=== PATIENT | male | born 1990 | race Caucasian/White ===

== ENCOUNTER 2018-09-16 11:00 | Emergency (ER) | payer SELFPAY ==
[2018-09-16] MEDS ORDERED: LIDOCAINE 1% MPF 2 ML AMPULE ONE (12:18)
--- NOTE | 2018-09-16 12:51 | ER ---
Nurse's Notes [facility] Name: Benjamin Moser Age: 27 yrs Sex: Male : 1990 Arrival Date: 09/16/2018 Time: 11:01 Bed 26 Private MD: None, None Diagnosis: Cutaneous abscess of groin;Cutaneous abscess of left axilla;Cutaneous abscess of left lower limb;Cutaneous abscess of right lower limb Presentation: 09/16 11:30 Presenting complaint: Patient states: "I have this abscess under my armpit, and the aj1 next thing I knew I got 3 on my leg, and one is on my pelvis right where my belt would be and it really hurts" Reports fatigue, fever. Transition of care: patient was not received from another setting of care. Onset of symptoms was September 10, 2018. Risk Assessment: Do you want to hurt yourself or someone else? Patient reports no desire to harm self or others. Initial Sepsis Screen: Does the patient meet any 2 criteria? No. Patient's initial sepsis screen is negative. Does the patient have a suspected source of infection? Yes: Skin breakdown/wound. Care prior to arrival: None. 11:30 Method Of Arrival: Ambulatory aj1 11:30 Acuity: RHONDA 4 aj1 Triage Assessment: 11:33 General: Appears in no apparent distress. comfortable, Behavior is calm, cooperative, aj1 appropriate for age. Pain: Pain currently is 6 out of 10 on a pain scale. Neuro: Level of Consciousness is awake, alert, obeys commands. Cardiovascular: Patient's skin is warm and dry. Respiratory: Airway is patent Respiratory effort is even, unlabored, Respiratory pattern is regular, symmetrical. Historical: - Allergies: 11:33 Bactrim; aj1 - Home Meds: 11:33 None [Active]; aj1 - PMHx: 11:33 None; aj1 - PSHx: 11:33 None; aj1 - Immunization history:: Flu vaccine is not up to date. - Social history:: Smoking status: Patient uses tobacco products, smokes one pack cigarettes per day. - Ebola Screening: : Patient denies travel to an Ebola-affected area in the 21 days before illness onset. Screenin:38 Abuse screen: Denies threats or abuse. Nutritional screening: No deficits noted. tw2 Tuberculosis screening: No symptoms or risk factors identified. Fall Risk None identified. Assessment: 11:30 General: Appears in no apparent distress. Behavior is calm, cooperative, appropriate tw2 for age. Pain: Complains of pain in groin and pelvis. Neuro: Level of Consciousness is awake, alert, obeys commands, Oriented to person, place, time, situation. Cardiovascular: Denies chest pain, shortness of breath, Patient's skin is warm and dry. Respiratory: Airway is patent Respiratory effort is even, unlabored, Respiratory pattern is regular, symmetrical. GI: No signs and/or symptoms were reported involving the gastrointestinal system. : No signs and/or symptoms were reported regarding the genitourinary system. Derm: Abscess located on groin and left inner thigh and left axilla. Musculoskeletal: Range of motion: intact in all extremities. 13:00 Reassessment: Patient appears in no apparent distress at this time. No changes from tw2 previously documented assessment. Patient and/or family updated on plan of care and expected duration. Pain level reassessed. Patient is alert, oriented x 3, equal unlabored respirations, skin warm/dry/pink. Vital Signs: 11:33 BP 128 / 85; Pulse 83; Resp 18; Temp 97.8; Pulse Ox 100% on R/A; Weight 88.45 kg (R); aj1 Height 5 ft. 8 in. (172.72 cm); Pain 6/10; 12:58 BP 119 / 81; Pulse 81; Resp 17; Pulse Ox 100% on R/A; tw2 11:33 Body Mass Index 29.65 (88.45 kg, 172.72 cm) aj1 ED Course: 11:01 Patient arrived in ED. sb2 11:01 None, None is Private Physician. sb2 11:32 Triage completed. aj1 11:33 Arm band placed on Patient placed in an exam room. aj1 11:35 Angie Frey, BOLIVAR is Primary Nurse. tw2 11:35 Emily Jacobs FNP-C is PHCP. kb 11:35 Kurt Feng MD is Attending Physician. kb 11:37 Placed in gown. Bed in low position. Pulse ox on. NIBP on. tw2 12:55 Wound culture swab sent to lab. Wound care:. jp3 12:55 Wound Culture Sent. jp3 13:02 Assist provider with I \\T\\ D: of an abscess on suprapubic area only Set up I\\T\\D tray. tw 2 Performed by Emily WHITEHEAD Patient tolerated well. Patient did not have IV access during this emergency room visit. Administered Medications: 12:45 Drug: Lidocaine (1 %) 1 ml {Note: by FNP. Tracie} Volume: 5 ml; Route: Infiltration; tw2 12:57 Drug: Clindamycin 300 mg Route: PO; tw2 13:03 Follow up: Response: No adverse reaction tw2 Outcome: 12:51 Discharge ordered by . junior 13:03 Discharged to home ambulatory. tw2 13:03 Condition: stable 13:03 Discharge instructions given to patient, Instructed on discharge instructions, follow up and referral plans. medication usage, wound care, Demonstrated understanding of instructions, follow-up care, medications, wound care, Prescriptions given X 1. 13:04 Patient left the ED. tw2 Signatures: Emily Jacobs FNP-C FNP-Mariely Marie RN RN aj1 Angie Frey RN RN tw2 Ya Mcintosh sb2 Tyson Paloom jp3
--- NOTE | 2018-09-16 12:51 | EDPHYS ---
Physician Documentation [facility] Name: Benjamin Moser Age: 27 yrs Sex: Male : 1990 Arrival Date: 09/16/2018 Time: 11:01 Bed 26 Private MD: None, None ED Physician Kurt Feng HPI: 09/16 11:56 This 27 yrs old Male presents to ER via Ambulatory with complaints of Abscess.kb 11:56 The patient presents with an abscess of the left femoral area and right inner thigh and kb left inner thigh and left axilla and left gluteal fold. Description: erythematous, swollen. Onset: The symptoms/episode began/occurred 1 week(s) ago. Possible cause(s): unknown. Associated signs and symptoms: Pertinent positives: erythema, swelling, Pertinent negatives: discharge, drainage, foreign body sensation, fever, headache, nausea, shortness of breath, vomiting. Modifying factors: the symptoms are alleviated by nothing, the symptoms are aggravated by pressure, touching. Severity of symptoms: At their worst the symptoms were mild, moderate, in the emergency department the symptoms are unchanged. The patient has not experienced similar symptoms in the past. The patient has not recently seen a physician. Historical: - Allergies: 11:33 Bactrim; aj1 - Home Meds: 11:33 None [Active]; aj1 - PMHx: 11:33 None; aj1 - PSHx: 11:33 None; aj1 - Immunization history:: Flu vaccine is not up to date. - Social history:: Smoking status: Patient uses tobacco products, smokes one pack cigarettes per day. - Ebola Screening: : Patient denies travel to an Ebola-affected area in the 21 days before illness onset. ROS: 11:55 Constitutional: Negative for fever, chills, and weight loss, Cardiovascular: Negative kb for chest pain, palpitations, and edema, Respiratory: Negative for shortness of breath, cough, wheezing, and pleuritic chest pain, Abdomen/GI: Negative for abdominal pain, nausea, vomiting, diarrhea, and constipation, MS/Extremity: Negative for injury and deformity, Neuro: Negative for headache, weakness, numbness, tingling, and seizure. 11:55 Skin: Positive for abscess, of the left femoral area and right inner thigh and left inner thigh and left axilla and left gluteal fold. Exam: 11:54 Constitutional: This is a well developed, well nourished patient who is awake, alert, kb and in no acute distress. Head/Face: Normocephalic, atraumatic. Chest/axilla: Normal chest wall appearance and motion. Nontender with no deformity. No lesions are appreciated. Cardiovascular: Regular rate and rhythm with a normal S1 and S2. No gallops, murmurs, or rubs. Normal PMI, no JVD. No pulse deficits. Respiratory: Lungs have equal breath sounds bilaterally, clear to auscultation and percussion. No rales, rhonchi or wheezes noted. No increased work of breathing, no retractions or nasal flaring. Abdomen/GI: Soft, non-tender, with normal bowel sounds. No distension or tympany. No guarding or rebound. No evidence of tenderness throughout. MS/ Extremity: Pulses equal, no cyanosis. Neurovascular intact. Full, normal range of motion. Neuro: Awake and alert, GCS 15, oriented to person, place, time, and situation. Cranial nerves II-XII grossly intact. Motor strength 5/5 in all extremities. Sensory grossly intact. Cerebellar exam normal. Normal gait. 11:54 Skin: abscess, that is small, of the left gluteal fold, left femoral area, left axilla, right inner thigh and left inner thigh, with fluctuance, that is mild. Vital Signs: 11:33 BP 128 / 85; Pulse 83; Resp 18; Temp 97.8; Pulse Ox 100% on R/A; Weight 88.45 kg (R); aj1 Height 5 ft. 8 in. (172.72 cm); Pain 6/10; 12:58 BP 119 / 81; Pulse 81; Resp 17; Pulse Ox 100% on R/A; tw2 11:33 Body Mass Index 29.65 (88.45 kg, 172.72 cm) aj1 Procedures: 12:49 I \\T\\ D: Incision and drainage was performed for an abscess of the groin Prepped with Betadine, Anesthetized with 1 ml's 1% Lidocaine. Incised with #11 blade. Drained moderate amount purulent fluid. Packed with iodoform gauze, Dressing: sterile 4x4 gauze, the patient tolerated the procedure well. MDM: 11:35 Patient medically screened. kb 11:54 Data reviewed: vital signs, nurses notes. Data interpreted: Pulse oximetry: on room air kb is 100 %. Interpretation: normal. 11:57 ED course: Pt educated that I\\T\\D should be performed on each of the abscesses. Pt does kb not want them all opened. States "I'm just worried about the one on my groin because it hurts, but I don't want the rest of them cut. I will just take the antibiotics.". 12:49 Counseling: I had a detailed discussion with the patient and/or guardian regarding: the kb historical points, exam findings, and any diagnostic results supporting the discharge/admit diagnosis, lab results, the need for outpatient follow up, a family practitioner, a general surgeon, to return to the emergency department if symptoms worsen or persist or if there are any questions or concerns that arise at home. 09/16 12:10 Order name: Wound Culture tw2 09/16 12:10 Order name: Dressing - Wound; Complete Time: 12:57 tw2 09/16 12:10 Order name: Gloves, Sterile; Complete Time: 12:10 tw2 09/16 12:10 Order name: Setup Suture Tray; Complete Time: 12:10 tw2 Administered Medications: 12:45 Drug: Lidocaine (1 %) 1 ml {Note: by ANABEL Hodges.} Volume: 5 ml; Route: Infiltration; tw2 12:57 Drug: Clindamycin 300 mg Route: PO; tw2 13:03 Follow up: Response: No adverse reaction tw2 Disposition: 14:12 Co-signature as Attending Physician, Kurt eFng MD. rn Disposition: 09/16/18 12:51 Discharged to Home. Impression: Cutaneous abscess of groin, Cutaneous abscess of left axilla, Cutaneous abscess of left lower limb, Cutaneous abscess of right lower limb. - Condition is Stable. - Discharge Instructions: Skin Abscess, [id number], Incision and Drainage, Care After. - Prescriptions for Clindamycin HCl 300 mg Oral Capsule - take 1 capsule by ORAL route every 6 hours for 10 days; 40 capsule. - Medication Reconciliation Form, Thank You Letter, Antibiotic Education, Prescription Opioid Use, Work release form form. - Follow up: Emergency Department; When: As needed; Reason: Worsening of condition. Follow up: Private Physician; When: 2 - 3 days; Reason: Recheck today's complaints, Continuance of care, Re-evaluation by your physician. - Problem is new. - Symptoms are unchanged. Signatures: Dispatcher [employer] Emily Washington, CHARLEY LITTLE-Mariely Marie RN RN aj1 Kurt Feng MD MD rn Wise, Tara, RN RN tw2 Corrections: (The following items were deleted from the chart) 13:04 12:51 09/16/2018 12:51 Discharged to Home. Impression: Cutaneous abscess of groin; tw2 Cutaneous abscess of left axilla; Cutaneous abscess of left lower limb; Cutaneous abscess of right lower limb. Condition is Stable. Forms are Work release form, Medication Reconciliation Form, Thank You Letter, Antibiotic Education, Prescription Opioid Use. Follow up: Emergency Department; When: As needed; Reason: Worsening of condition. Follow up: Private Physician; When: 2 - 3 days; Reason: Recheck today's complaints, Continuance of care, Re-evaluation by your physician. Problem is new. Symptoms are unchanged. kb
[2018-09-16] MEDS ORDERED: CLINDAMYCIN HCL 150 MG CAP ONE (13:02)
== END 2018-09-16 13:04 | disposition home or self-care (01) ==
LOC: ER 11:00
PROC: 0J9C0ZZ Drainage of Pelvic Region Subcutaneous Tissue and Fascia, Open Approach (ICD-10-PCS; principal; 2018-09-16)
DX: L02.214 Cutaneous abscess of groin (principal); L02.412 Cutaneous abscess of left axilla; L02.416 Cutaneous abscess of left lower limb; L02.415 Cutaneous abscess of right lower limb; F17.210 Nicotine dependence, cigarettes, uncomplicated
CPT/HCPCS: 87070; 87205; 99284; J2001